=== PATIENT | female | born 1975 | race African-American/Black ===

== ENCOUNTER 2018-11-22 10:06 | Outpatient (CLI) | payer BC ==
--- NOTE | 2018-12-06 07:52 | MMO ---
Bilateral MAMMO Bilat Screen [facility]. CLINICAL HISTORY: Patient is 43 years old and is seen for screening. The patient has no family history of breast cancer. The patient has no personal history of cancer. VIEWS: The views performed were: bilateral craniocaudal with tomosynthesis and bilateral mediolateral oblique with tomosynthesis. FILMS COMPARED: The present examination has been compared to a prior imaging study performed at [facility] on 08/02/2017. MAMMOGRAM FINDINGS: There are scattered fibroglandular densities. There are stable benign appearing calcifications seen in both breasts. There are no suspicious masses, suspicious calcifications, or new areas of architectural distortion. IMPRESSION: THERE IS NO MAMMOGRAPHIC EVIDENCE OF MALIGNANCY. A ROUTINE FOLLOW-UP MAMMOGRAM IN 1 YEAR IS RECOMMENDED. THE RESULTS OF THIS EXAM WERE SENT TO THE PATIENT. ACR BI-RADS Category 2 - Benign finding MAMMOGRAPHY NOTE: 1. A negative mammogram report should not delay a biopsy if a dominant of clinically suspicious mass is present. 2. Approximately 10% to 15% of breast cancers are not detected by mammography. 3. Adenosis and dense breasts may obscure an underlying neoplasm. Reported by: ZBIGNIEW MCKEON MD Electonically Signed: [id number]
== END 2018-11-22 10:07 | disposition home or self-care (01) ==
LOC: BICMAMMO 10:06
PROVIDERS: ATTEND Family Medicine
DX: Z12.31 Encounter for screening mammogram for malignant neoplasm of breast (principal)
CPT/HCPCS: 77063; 77067

== ENCOUNTER 2019-12-11 10:56 | Outpatient (CLI) | payer BC ==
--- NOTE | 2019-12-11 11:42 | ULT ---
Exam: Pelvic ultrasound including Transabdominal, Transvaginal, And Vascular Duplex with color and spectral Doppler imaging: HISTORY: Heavy periods, menorrhagia with regular cycle COMPARISON: None FINDINGS: The uterus is 10.4 x 5.5 x 7 cm Endometrial thickness:1.3 cm Right ovary:3.1 x 3.7 x 2.8 cm Left ovary:2.7 x 2.6 x 2.3 cm No abscess or significant abnormal fluid collection. 1.3 x 1.5 cm nabothian cyst.. Vascular duplex examination demonstrates no evidence for ovarian torsion IMPRESSION: No significant acute process within the pelvis
== END 2019-12-11 10:57 | disposition home or self-care (01) ==
LOC: SCSULT 10:56
PROVIDERS: ATTEND Family Medicine
DX: N92.0 Excessive and frequent menstruation with regular cycle (principal)
CPT/HCPCS: 76856

== ENCOUNTER 2020-08-28 10:04 | Outpatient (CLI) | payer OTHER | END 2020-08-28 10:05 | disposition home or self-care (01) | LOC: BICMAMMO 10:04 | PROVIDERS: ATTEND Physician Assistant | DX: Z12.31 Encounter for screening mammogram for malignant neoplasm of breast (principal) | CPT/HCPCS: 77063; 77067 ==

== ENCOUNTER 2024-02-13 11:05 | Emergency (ER) | payer BC ==
[2024-02-13] MEDS ORDERED: Ketorolac Tromethamine 30 MG (1 mL) VIAL ONE (12:44)
== END 2024-02-13 12:58 | disposition home or self-care (01) ==
LOC: ERS 11:05
DX: M79.604 Pain in right leg (principal); I10 Essential (primary) hypertension; Z55.6 Problems related to health literacy; Z79.899 Other long term (current) drug therapy
CPT/HCPCS: 96372; J1885